=== PATIENT | female | born 1950 | race Caucasian/White ===

== ENCOUNTER 2016-12-10 09:18 | Emergency (ER) | payer MEDICARE ==
[2016-12-10] MEDS ORDERED: DIAZEPAM 5 MG TABLET ONE (10:27)
[2016-12-10] MEDS ORDERED: IBUPROFEN 800 MG TABLET ONE (10:27)
[2016-12-10] MEDS ORDERED: HYDROCODONE/ACETAMINOPHEN 5/325MG TABLET ONE (10:27)
--- NOTE | 2016-12-10 11:39 | RAD ---
HISTORY: Low back pain for one week. No known injury. COMPARISON: None Findings: AP and lateral views of the lumbar spine with AP spot film of the lumbo-sacral junction are obtained. 6 lumbar type vertebral bodies are present. The development and bony structures are normal. There is no fracture, dislocation or destructive lesion. Good 1 anterolisthesis of L5 on L6 is present. Mild to moderate degenerative changes are present to the L5-6 and L6-S1 facets. Mild facet disease is noted L4-5. The disk spaces and vertebral body heights are well-preserved. The sacrum and sacroiliac joints are normal. IMPRESSION: Degenerative changes with grade 1 anterolisthesis of L5 on 6. No fracture or dislocation.
== END 2016-12-10 12:22 | disposition home or self-care (01) ==
LOC: ED 09:18
DX: M54.32 Sciatica, left side (principal)
CPT/HCPCS: 72100; 99283 ×2; A9270 ×3